=== PATIENT | male | born 1935 | race Caucasian/White ===

== ENCOUNTER 2021-08-13 01:41 | Inpatient (IN) | payer MEDICARE ==
[~2021-08-13] VITALS: Ht 188 cm; Wt 206.4 kg
[2021-08-13] MEDS ORDERED: METO2.5 PO (06:06)
[2021-08-13] MEDS ORDERED: Synthroid/Levo0.2 MG PO (06:07)
[2021-08-13] MEDS ORDERED: METOPROLOL SUCC25 MG PO (06:07)
[2021-08-13] MEDS ORDERED: VITAMIN D325 MC3 PO (06:08)
[2021-08-13] MEDS ORDERED: ATOR40TA PO (06:08)
[2021-08-13] MEDS ORDERED: ALLO300 PO (06:08)
[2021-08-13] MEDS ORDERED: TRAZ50 PO (06:09)
[2021-08-13] MEDS ORDERED: Potassium Chlo20 ME1 PO (06:10)
[2021-08-13] MEDS ORDERED: FUROSEMIDE40 MG PO (06:10)
[2021-08-13] MEDS ORDERED: FOLI1 PO (06:11)
[2021-08-13] MEDS ORDERED: Ventolin/Prove6.7 GM INH (06:11)
[2021-08-13] MEDS ORDERED: SPIRONOLACTONE25 MG PO (06:11)
[2021-08-13] MEDS ORDERED: ANORO ELLIPTA1 EAC1 INH (06:11)
[2021-08-13] MEDS ORDERED: Aspir 8181 MG PO (06:12)
[2021-08-13] MEDS ORDERED: Vitamin B-121000 MCG PO (06:13)
[2021-08-13] MEDS ORDERED: DICLOFENAC SOD100 G1 TOP (06:14)
[2021-08-13] MEDS ORDERED: RENAL VITAMIN0.8 MG PO (06:15)
--- NOTE | 2021-08-13 06:44 | NUR ---
PT ARRIVED VIA [facility] BY EMS AT 0405 AM. PT A & OX4. IV TO L) AC AND L) FOREARM. SOB ON EXERTION NOTED. .
--- NOTE | 2021-08-13 06:46 | NUR ---
PT A & OX4. SBA. URINAL BEDSIDE. IV TO L) AC & L) FOREARM. WAITING ON PROVIDER'S ORDERS. PT DOWNSTAIRS WITH X-RAY TECH FOR CHEST X-RAY. WILL CONTINUE TO MONITOR.
[2021-08-13 08:02] LABS: Hematocrit 22.7 % (37.0-53.0); Hemoglobin 7.3 g/dL (13.5-17.5); Mean Corpuscular HGB 37.4 pg (26.0-34.0); Mean Corpuscular HGB Conc 32.2 g/dL (31.5-36.5); Mean Corpuscular Volume 116 fL (80-100); Mean Platelet Volume 9.3 fL (9.1-12.4); Platelet Count 88 K/mm3 (150-400); RDW Coefficient Variation 21.8 % (11.7-14.2); RDW Standard Deviation 90.2 fL (35.1-46.3); Red Blood Cell Count 1.95 M/mm3 (4.30-5.90); White Blood Cell Count 12.87 K/mm3 (4.00-11.30)
[2021-08-13 08:25] LABS: Albumin, Blood 3.3 g/dL (3.4-5.0); Bilirubin, Total 5.3 mg/dL (0.1-1.0); Bun/Creatinine Ratio 39.7 (12.0-20.0); Calcium, Blood 8.5 mg/dL (8.5-10.1); Creatinine, Blood 2.19 mg/dL (0.60-1.20); Globulin, Blood 3.2 g/dL (2.2-4.0); Potassium, Blood 3.4 mmol/L (3.5-5.5); Total Protein, Blood 6.5 g/dL (6.4-8.2)
--- NOTE | 2021-08-13 16:56 | NUR ---
SHIFT SUMMARY PT TAKEN DOWN FOR CXR DURING SHIFT REPORT THIS AM VIA W/C. PT ABLE TO TX FROM BED TO CHAIR WITH SBA. PER SHIFT REPORT, PT ADMITTED THIS AM FROM [facility] WITH CHF, NSTEMI, AND CKD. 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 PT REPORTED FULL USE OF R LEG WITH GROSS MOTOR USE OF R ARM. USING URINAL IN BED. ABLE TO GET UP TO BTHRM FOR BM WITH SBA. PT RECEIVING IV DIURETICS FOR CHF AND IV ABX FOR LLL PNM. PT IS VERY PLEASANT AND CO-OP. DR MITCHELL IN TO SEE PT THIS AM. NEW ORDERS PLACED. P/T TO RM TO WORK WITH PT. UP TO CHAIR FOR LUNCH AND BACK TO BED SELF. PT RESTING QUIETLY WATCHING TV. FAMILY HERE TO VISIT THIS AFTERNOON. DENIES NEEDS AT THIS TIME. CALL LT IN REACH.
--- NOTE | 2021-08-13 18:44 | NUR ---
PT WAS USING THE RESTRROM AT THE BEGINNING OF THE SHIFT. PT HAD A LARGE FIRM BOWEL MOVEMENT. PT WBC 12.7 WAS ELEVATED, DR. MITCHELL ORDERED IV ANTIBIOTICS FOR THE PT. PT HAS PNEUMONIA AND HAS INCREASED DYSPNEA ON EXTERTION. PT IS ON RA AND O2 STATS ARE STABLE. PT IS ON TELE MONITORING SR WITH BUNDLE BRANCH BLOCK, HR 82. PT BUMEX WAS INCREASED FROM 1MG/4ML TO 2MG/8ML. PT HAS LOW OUTPUT THROUGHOUT SHIFT. PT WAS ABLE TO AMBULATE FROM BED TO BATHROOM WITH STAND BY ASSIST. PT HAS 3+ PITTING EDEMA IN RLE AND LLE, PT IS WEARING COMPRESSION STOCKINGS TO IMPROVE MELANIE RETURN. PT WILL CONTIUNED TO BE MONITORED. PT IS RESTING IN BED WITH CALL LIGHT WITHIN REACH.
--- NOTE | 2021-08-14 05:04 | NUR ---
PT A & OX4. V/S WNL. CARDIAC DIET. DNR. STB WITH WALKER AND GT. SOB AT REST. PT DENIED C/P. PT VOIDED W/O DIFFICULTY. NO BM THIS SHIFT. IV TO L) AC & L) FOREARM. PRN TRAZADONE GIVEN FOR IMSOMNIA PER EMAR. WILL CONTINUE TO MONITOR.
[2021-08-14 05:12] LABS: BASOPHILS ABSOLUTE AUTO 0.04 K/mm3 (0.00-0.23); BASOPHILS PERCENT AUTO 0 % (0-2); EOSINOPHILS ABSOLUTE AUTO 0.09 K/mm3 (0.00-0.68); EOSINOPHILS PERCENT AUTO 1 % (0-6); Hematocrit 21.9 % (37.0-53.0); Hemoglobin 7.2 g/dL (13.5-17.5); IMMATURE GRAN ABSOLUTE AUTO 0.07 K/mm3 (0.00-0.10); IMMATURE GRAN PERCENT AUTO 1 % (0-1); LYMPHOCYTES ABSOLUTE AUTO 0.74 K/mm3 (0.84-5.20); LYMPHOCYTES PERCENT AUTO 7 % (21-46); MONOCYTES ABSOLUTE AUTO 0.88 K/mm3 (0.16-1.47); MONOCYTES PERCENT AUTO 8 % (4-13); Mean Corpuscular HGB 37.1 pg (26.0-34.0); Mean Corpuscular HGB Conc 32.9 g/dL (31.5-36.5); Mean Corpuscular Volume 113 fL (80-100); Mean Platelet Volume 10.3 fL (9.1-12.4); NEUTROPHILS ABSOLUTE AUTO 8.98 K/mm3 (1.96-9.15); NEUTROPHILS PERCENT AUTO 83 % (41-73); Platelet Count 87 K/mm3 (150-400); RDW Coefficient Variation 21.6 % (11.7-14.2); RDW Standard Deviation 87.3 fL (35.1-46.3); Red Blood Cell Count 1.94 M/mm3 (4.30-5.90)
[2021-08-14 05:23] LABS: Bun/Creatinine Ratio 38.3 (12.0-20.0); Calcium, Blood 8.4 mg/dL (8.5-10.1); Creatinine, Blood 2.43 mg/dL (0.60-1.20); Potassium, Blood 3.8 mmol/L (3.5-5.5)
[2021-08-14 09:00] LABS: Percent Saturation 16.4 % (20.0-50.0)
[2021-08-14 13:22] LABS: Source, Urine Foley catheter
[2021-08-14 13:46] LABS: Appearance, Urine Hazy (Clear); Bilirubin, Urine Neg (Neg); Blood, Urine Neg (Neg); Color, Urine Amber (P-Yellow); Glucose Qualitative, Urine Neg (Neg); Ketones, Urine Neg (Neg); Leukocyte Esterase, Urine Neg (Neg); Nitrite, Urine Neg (Neg); Urobilinogen, Urine NORM (Normal)
[2021-08-14 14:00] LABS: Protein, Urine 1+ (Neg); Specific Gravity, Urine 1.015 (1.003-1.022)
[2021-08-14 14:02] LABS: Squamous Epithelial Cells Mod /hpf (Few)
[2021-08-14 14:03] LABS: Bacteria Few /hpf; Red Blood Cells, Urine 0-2 /hpf (0-2); White Blood Cells, Urine 0-2 /hpf (0-5)
--- NOTE | 2021-08-14 16:25 | NUR ---
SHIFT SUMMARY PT RESTING QUIETLY WATCHING TV AT START OF SHIFT AND THEN UP INDEPENDENTLY TO BTHRM. PT REQUESTING AWILDA HOSE PUT BACK ON WHEN GETTING BACK TO BED. BLE'S VERY SWOLLEN AND TIGHT FROM FEET UP TO GROIN/THIGH AREA. PT USING URINAL AT BS SOMETIMES, INSTEAD OF GETTING UP TO BTHRM. PT ONLY VOIDING SM AMTS AT A TIME. DR MITCHELL IN TO SEE PT AND DISCUSSED PLAN OF CARE. DR MITCHELL UPDATED ON PT STATUS. BLADDER SCAN DONE SHOWING 453cc PVR. NEW ORDERS GIVEN TO PLACE ZUNIGA CATH FOR RETENSION AND TO LEAVE ZUNIGA IN PLACE AT D/C UNTIL PT ABLE TO SEE OUTPT UROLOGY. PT UNABLE TO STRAIGHT CATH HERE OR AT HOME D/T HX OF CVA AND R ARM BEING NEAR FLACCID. PT A LITTLE CONFUSED ABOUT CATHETER, REQUIRED EDU SEVERAL TIMES ABOUT HOW IT WORKED AND WHY IT WOULD BE LEFT IN AT D/C. PT'S FAMILY HERE TO VISIT AFTER LUNCH. FAMILY ALSO REPORTED PT FORGETFUL AND HAS DEMENTIA, NEEDING TO HAVE FREQUENT REMINDERS AT TIMES. PT WANTING TO GO HOME TODAY. REPORTED FEELING BETTER THAN WHEN HE CAME IN. REPORTS BEING MORE SOB THAN HE NORMALLY WAS A FEW MONTHS AGO. FAMILY REPORTED PCP INCREASED HIS DIURETICS RECENTLY, BUT NOT ENOUGH AND NOT SOON ENOUGH. PT HAS BEEN PLEASANT AND CO-OP, SITTING UP TO CHAIR FOR MEALS AND UP TO EOB AT TIMES DURING THE DAY. CALL LT IN REACH. ABLE TO MAKE NEEDS KNOWN.
--- NOTE | 2021-08-14 17:13 | NUR ---
PT WAS RESTING IN BED AT THE START OF THE SHIFT. PT CONTIUNES TO HAVE OUT URINE OUTPUT. PT CONTIUNES TO HAVE 3+ EDEMA IN HIS RLE AND LLE. PT HAS INCREASED DYSPNEA ON EXTERTION, BUT PT O2 STATURATIONS ARE STABLE AT RA. DR. MITCHELL ORDERED A URINE AND STOOL SAMPLE. DR. MITCHELL ALSO ORDERED A BLADDER SCAN FOR THE PT. PT BLADDER SCAN SHOWED 453 RESDIUAL URINE IN THE BLADDER POSTVOID. DR. MITCHELL ORDERED A ZUNIGA CATHETER TO BE PLACED IF SCAN SHOWED MORE THAN 300ML OF URINE IN THE BLADDER. PT URINE AND STOOL SAMPLES WERE SENT TO THE LAB. PT RESULTS FOR URINE SAMPLE ARE NEGATIVE. PT IS ON 1500ML FLUID RESTRICTIONS AND STRICT I&O'S. PT FAMILY IS VISITING PT AT THE END OF THE SHIFT. PT RESTING IN BED COMFORTABLE WITH CALL WITHIN REACH.
--- NOTE | 2021-08-15 03:50 | NUR ---
DR. TIJERINA PT'S URINE COLOR PINK/RED.
--- NOTE | 2021-08-15 04:03 | NUR ---
PT A & OX4. V/S WNL. CARDIAC DIET. DNR/DNI. IV TO L) AC & L) FOREARM. AMBULATES WITH CANE;SBA. EDEMA TO LEGS/THIGHS/HIP/SCROTUM AND PENIS. ZUNIGA CATHETER IN PLACE AND DRAINING PINK/RED URINE. PRN TRAZADONE GIVEN FOR ANXIETY. WILL CONTINUE TO MONITOR.
[2021-08-15 05:15] LABS: BASOPHILS ABSOLUTE AUTO 0.02 K/mm3 (0.00-0.23); BASOPHILS PERCENT AUTO 0 % (0-2); EOSINOPHILS ABSOLUTE AUTO 0.14 K/mm3 (0.00-0.68); EOSINOPHILS PERCENT AUTO 2 % (0-6); Hemoglobin 6.9 g/dL (13.5-17.5); IMMATURE GRAN ABSOLUTE AUTO 0.06 K/mm3 (0.00-0.10); IMMATURE GRAN PERCENT AUTO 1 % (0-1); LYMPHOCYTES ABSOLUTE AUTO 0.54 K/mm3 (0.84-5.20); LYMPHOCYTES PERCENT AUTO 6 % (21-46); MONOCYTES ABSOLUTE AUTO 0.57 K/mm3 (0.16-1.47); MONOCYTES PERCENT AUTO 7 % (4-13); Mean Corpuscular HGB 36.7 pg (26.0-34.0); Mean Corpuscular HGB Conc 31.4 g/dL (31.5-36.5); Mean Corpuscular Volume 117 fL (80-100); Mean Platelet Volume 10.6 fL (9.1-12.4); NEUTROPHILS ABSOLUTE AUTO 7.29 K/mm3 (1.96-9.15); NEUTROPHILS PERCENT AUTO 85 % (41-73); Platelet Count 86 K/mm3 (150-400); RDW Coefficient Variation 21.4 % (11.7-14.2); RDW Standard Deviation 92.5 fL (35.1-46.3); Red Blood Cell Count 1.88 M/mm3 (4.30-5.90); White Blood Cell Count 8.62 K/mm3 (4.00-11.30)
[2021-08-15 05:55] LABS: Bun/Creatinine Ratio 39.4 (12.0-20.0); Calcium, Blood 8.4 mg/dL (8.5-10.1); Creatinine, Blood 2.46 mg/dL (0.60-1.20); Potassium, Blood 3.7 mmol/L (3.5-5.5)
--- NOTE | 2021-08-15 06:25 | NUR ---
PROVIDER NOTIFIED OF PT'S HM.9 THIS AM. PROVIDER ORDERED 1L OF PACKED RED BLOOD CELLS. ORDERS ENTERED. WILL CONTINUE TO MONITOR.
[2021-08-15 09:28] LABS: Stool Occult Blood Guaiac 1 Neg (Neg)
--- NOTE | 2021-08-15 16:50 | NUR ---
PT IS A/OX3, PLEASANT AND COOPERATIVE, THE PT IS UP WITH ASSIST TO THE BATHROOM AND THE CHAIR. THE PT WAS UP IN THE CHAIR FOR MOST OF THE DAY. PT APPEARS TO BE BREATHING EASILY ON RA. THE PT IS SOB WITH ACIVITY. THE PT RECIEVED 1 UNIT OF PRBC'S THIS AFTERNOON AND TOLERATED THE TRANSFUSION WELL. THE PT DENIED PAIN. THE PT WAS MEDICATED FOR PERSISTANT COUGH X1 TODAY. FAMILY WAS AT THE BEDSIDE. CALL LIGHT IN REACH, WILL CONTINUE TO MONITOR AND ASSESS FOR CHANGES
--- NOTE | 2021-08-15 17:54 | NUR ---
IV LEFT FA IV DC'D DUE TO LEAKING CATHETER INTACT. LEFT AC IV REMAINS
--- NOTE | 2021-08-16 06:09 | NUR ---
SHIFT SUMMARY PT SLEPT WELL THIS EVENING. PT REMAINS SOB WITH EXERTION, HOWEVER THIS IS IMPROVED SINCE ADMISSION. ZUNIGA CATHETER PATENT AND DRAINING. URINE IN ZUNIGA BAG PINK/RED TINGED. SOME BLOOD AROUND INSERTION SITE OF CATHETER. PT HAS EDEMA FROM THE WAIST DOWN. INCLUDING SWELLING TO SCROTUM/PENIS. PT COMPLIANT WITH FLUID RESTRICTION. VITAL SIGNS STABLE. NO ACUTE CHANGES THIS SHIFT.
[2021-08-16 08:31] LABS: BASOPHILS ABSOLUTE AUTO 0.02 K/mm3 (0.00-0.23); BASOPHILS PERCENT AUTO 0 % (0-2); EOSINOPHILS ABSOLUTE AUTO 0.14 K/mm3 (0.00-0.68); EOSINOPHILS PERCENT AUTO 2 % (0-6); IMMATURE GRAN ABSOLUTE AUTO 0.07 K/mm3 (0.00-0.10); IMMATURE GRAN PERCENT AUTO 1 % (0-1); LYMPHOCYTES ABSOLUTE AUTO 0.53 K/mm3 (0.84-5.20); LYMPHOCYTES PERCENT AUTO 7 % (21-46); MONOCYTES ABSOLUTE AUTO 0.43 K/mm3 (0.16-1.47); MONOCYTES PERCENT AUTO 5 % (4-13); Mean Corpuscular HGB 35.4 pg (26.0-34.0); Mean Platelet Volume 9.3 fL (9.1-12.4); NEUTROPHILS ABSOLUTE AUTO 6.84 K/mm3 (1.96-9.15); NEUTROPHILS PERCENT AUTO 85 % (41-73); NRBC ABSOLUTE 0.02 K/mm3 (0.00-0.02); NRBC Auto 0.2 /100 WBC (0.0-0.2); Platelet Count 84 K/mm3 (150-400); RDW Coefficient Variation 23.9 % (11.7-14.2); RDW Standard Deviation 94.5 fL (35.1-46.3); Red Blood Cell Count 2.26 M/mm3 (4.30-5.90); White Blood Cell Count 8.03 K/mm3 (4.00-11.30)
[2021-08-16 08:50] LABS: Bun/Creatinine Ratio 43.9 (12.0-20.0); Calcium, Blood 8.5 mg/dL (8.5-10.1); Creatinine, Blood 2.05 mg/dL (0.60-1.20); Potassium, Blood 3.5 mmol/L (3.5-5.5)
[2021-08-16 08:53] LABS: Mean Corpuscular Volume 111 fL (80-100)
--- NOTE | 2021-08-16 11:19 | NUR ---
LEFT AC IV REMOVED FOR DISCHARGE CATHETER INTACT
[2021-08-16] MEDS ORDERED: VISBIOME 112.51 EACH PO (11:31)
[2021-08-16] MEDS ORDERED: CEPH500 PO (11:32)
[2021-08-16] MEDS ORDERED: Tessalon200 MG PO (13:02)
--- NOTE | 2021-08-16 15:21 | NUR ---
PT DISCHARGED THE PT AND HIS FAMILY VERBALIZED UNDERSTANDING OF THE DC INSTRUCTIONS. THE PTS PRESCRIPTIONS WERE FAXED TO ER[facility] MAGALLON IN [facility] PER HIS REQUEST AND VERIFIED BY TELEPHONE THAT THEY WERE RECIEVED. OXYGEN WAS DELIVERED TO THE PT AND APPLIED BEFORE DC. THE PT WAS REMINDED TO CALL HIS PCP TO ARRANGE A FOLLOW UP [facility]. THE PT WAS TRANSFERED VIA WHEELCHAIR ACCOMPANIED BY THE PING PONG TABLE ASSEMBLER AND HIS FAMILY
== END 2021-08-16 14:45 | disposition home health service (06) | DRG 314 ==
LOC: MEDS 01:41
PROVIDERS: Internal Medicine; ADMIT Internal Medicine
DX: T86.298 Other complications of heart transplant (principal); I50.23 Acute on chronic systolic (congestive) heart failure; J96.01 Acute respiratory failure with hypoxia; I13.0 Hypertensive heart and chronic kidney disease with heart failure and stage 1 through stage 4 chronic kidney disease, or unspecified chronic kidney disease; N18.4 Chronic kidney disease, stage 4 (severe); J44.0 Chronic obstructive pulmonary disease with (acute) lower respiratory infection; Z66 Do not resuscitate; J20.9 Acute bronchitis, unspecified; I25.10 Atherosclerotic heart disease of native coronary artery without angina pectoris; I35.0 Nonrheumatic aortic (valve) stenosis; N13.9 Obstructive and reflux uropathy, unspecified; D58.0 Hereditary spherocytosis; R35.0 Frequency of micturition; R33.9 Retention of urine, unspecified; J84.10 Pulmonary fibrosis, unspecified; E87.70 Fluid overload, unspecified; Z95.1 Presence of aortocoronary bypass graft; Z79.82 Long term (current) use of aspirin; Z79.890 Hormone replacement therapy; Z79.899 Other long term (current) drug therapy; Y83.8 Other surgical procedures as the cause of abnormal reaction of the patient, or of later complication, without mention of misadventure at the time of the procedure
CPT/HCPCS: 36415; 71046; 71250; 76770; 80048; 80053; 81001; 82270; 82607; 82728; 82746; 83540; 83550; 83880; 84145; 84484; 85025; 85027; 86850; 86900; 86901; 86923; 94640; 94664; 94760; 94761; 97110; 97162; A9270; C9113; J0456; J0696; J1644; J7040; J7050; P9016